=== PATIENT | female | born 1985 | race African-American/Black ===

== ENCOUNTER 2017-05-19 19:45 | Emergency (ER) | payer SELFPAY ==
[2017-05-19] MEDS ORDERED: IV NORMAL SALINE 1000ML BAG 1,000 ML IV SCH (20:17)
[2017-05-19] MEDS ORDERED: FAMOTIDINE 20 MG/2 ML VIAL IVP ONE (20:30)
[2017-05-19] MEDS ORDERED: 0.9 % SODIUM CHLORIDE 10 ML DISP.SYRIN. IV PRN (20:30)
[2017-05-19] MEDS ORDERED: ONDANSETRON PF 4 MG/2 ML VIAL. IV ONE (20:30)
[2017-05-19] MEDS ORDERED: KETOROLAC 30 MG/ML INJ. IV ONE (20:30)
[2017-05-19 20:35] LABS: BASO % 1 % (0-3); EOS % 2 % (0-3); HEMATOCRIT 39.2 % (36.0-47.0); HEMOGLOBIN 12.9 g/dL (12.0-15.5); LYMPH # 3.6 x10^3/uL (1.0-4.8); LYMPH % 53 % (24-48); MEAN CORPUSCULAR HEMOGLOBIN 29 pg (25-35); MEAN CORPUSCULAR HGB CONC 33 g/dL (31-37); MEAN CORPUSCULAR VOLUME 88 fL (79-100); MONO % 4 % (0-9); NEUT % 40 % (31-73); PLATELET COUNT 307 x10^3/uL (140-400); RED BLOOD COUNT 4.47 x10^6/uL (3.50-5.40); RED CELL DISTRIBUTION WIDTH 13.2 % (11.5-14.5); WHITE BLOOD COUNT 6.8 x10^3/uL (4.0-11.0)
[2017-05-19 20:36] LABS: BILIRUBIN,URINE NEGATIVE (NEG); GLUCOSE,URINE NEGATIVE (NEG); NITRITE,URINE NEGATIVE (NEG); PH,URINE 7.5; PROTEIN,URINE NEGATIVE (NEG-TRACE)
[2017-05-19 20:43] LABS: BACTERIA,URINE 0 /HPF (0-FEW); RBC,URINE 20-40 /HPF (0-2); SQUAMOUS EPITHELIAL CELL,UR FEW /LPF; WBC,URINE OCC /HPF (0-4)
[2017-05-19 20:50] LABS: CALCIUM 8.8 mg/dL (8.5-10.1); CREATININE 0.8 mg/dL (0.6-1.0); GFR 101.9; POTASSIUM 3.8 mmol/L (3.5-5.1)
[2017-05-19 20:56] LABS: ALBUMIN 3.6 g/dL (3.4-5.0); TOTAL BILIRUBIN 0.7 mg/dL (0.2-1.0); TOTAL PROTEIN 7.3 g/dL (6.4-8.2)
[2017-05-19 21:07] VITALS: BP 129/84
--- NOTE | 2017-05-19 21:08 | RAD ---
CT abdomen and pelvis without contrast HISTORY: Epigastric abdominal pain. TECHNIQUE: Helical noncontrast CT imaging of the abdomen and pelvis was acquired. Abdomen findings: There are probable gallstones present. No nephroureterolithiasis or hydronephrosis. Kidneys, adrenals, pancreas, spleen and liver are unremarkable. Moderate volume of stool within the colon. No obstruction or inflammatory changes in GI tract. Portion of the appendix is visualized. The cecum and is negative for inflammatory change. No abdominal fluid. Lung bases and bones are unremarkable. Pelvis findings: Uterus appears to be mildly enlarged, intrauterine device is positioned obliquely at the uterus, malpositioning or myometrial perforation by the device cannot be excluded particularly the left arm of the device which appears to approach adjacent bowel loops overlying the uterus. No bladder calculi. Ovaries obscured by surrounding bowel loops. No pelvic fluid. Mild volume of stool within the rectosigmoid colon. Bones unremarkable. IMPRESSION: 1. No acute process. Appendix is negative. 2. Probable gallstones. 3. Mild uterine enlargement. There may be malpositioning of the intrauterine device, myometrial perforation of one of the arms of the device cannot be excluded. This could be further characterized by pelvic sonography. Exposure: One or more of the following individualized dose reduction techniques were utilized for this examination: 1. Automated exposure control 2. Adjustment of the mA and/or kV according to patient size 3. Use of iterative reconstruction technique Electronically signed by: William Wills MD (05/19/2017 9:05 PM) [facility]
--- NOTE | 2017-05-19 21:12 | PHYS DOC ---
Past Medical History Past Medical History: Bronchitis Past Surgical History: No Surgical History Alcohol Use: None Drug Use: Marijuana Adult General Chief Complaint Chief Complaint: ABDOMINAL PAIN HPI HPI sHe is a pleasant 32-year-old -[place] female who is a G [id number] who presents with intermittent crampy abdominal pain epigastric began about 9:00 this morning. Patient admits she is a homeless individual who was just recently released [place] a [place] [facility] who complains of intermittent crampy abdominal pain in the epigastrium that radiates under each breast bilaterally. It is not worse with food impaction are prior to arrival she did eat some butter cookies without issue. She denies any nausea, vomiting, chest pain with this abdominal pain. She has no diarrhea, no fevers no chills or URI symptoms. She denies any drug use or prior history of reflux symptoms. Pain is moderate at this time but 3 of 10. She denies being sexually active, denies any history of sexual transmitted diseases, or being at this time. sHe further denies any UTI symptoms Review of Systems Review of Systems Constitutional: Denies fever or chills [] Eyes: Denies change in visual acuity, redness, or eye pain [] HENT: Denies nasal congestion or sore throat [] Respiratory: Denies cough or shortness of breath [] Cardiovascular: No additional information not addressed in HPI [] GI: Planes of only abdominal pain in the epigastric region with no nausea no vomiting no diarrhea no bloody stools no constipation. : Denies dysuria or hematuria [] Musculoskeletal: Denies back pain or joint pain [] Integument: Denies rash or skin lesions [] Neurologic: Denies headache, focal weakness or sensory changes [] Endocrine: Denies polyuria or polydipsia [] All other systems were reviewed and found to be within normal limits, except as documented in this note. Current Medications Current Medications Current Medications Medications (Trade) Dose Ordered Sig/Ryley Start Time Stop Time Status Last Admin Dose Admin Famotidine (Pepcid Vial) 20 mg 1X ONCE 05/19/17 20:30 05/19/17 20:31 DC 05/19/17 20:32 20 MG Ketorolac Tromethamine (Toradol) 30 mg 1X ONCE 05/19/17 20:30 05/19/17 20:31 DC 05/19/17 20:34 30 MG Ondansetron HCl (Zofran) 4 mg 1X ONCE 05/19/17 20:30 05/19/17 20:31 DC 05/19/17 20:19 4 MG Sodium Chloride (Normal Saline Flush) 10 ml QSHIFT PRN 05/19/17 20:30 Allergies Allergies Allergies Coded Allergies Type Severity Reaction Last Updated Verified No Known Drug Allergies 09/13/13 No Physical Exam Physical Exam Vital signs recorded on the chart patient to be hypertensive only. Constitutional: Well developed, well nourished, no acute distress, non-toxic appearance. [] HENT: Normocephalic, atraumatic, bilateral external ears normal, oropharynx dry mucous membranes with poor dentition no oral exudates, nose normal. [] Eyes: PERRLA, EOMI, conjunctiva normal, no discharge. [] Neck: Normal range of motion, no tenderness, supple, no stridor. [] Cardiovascular:Heart rate regular rhythm, no murmur [] Lungs & Thorax: Bilateral breath sounds clear to auscultation [] Abdomen: Bowel sounds normal, soft,mild tenderness in the epigastric region tenderness, no masses, no pulsatile masses. Guarding rebound or organomegaly. Specific Cronin's or McBurney's point tenderness to palpation. [] Skin: Warm, dry, no erythema, no rash. [] Back: No tenderness, no CVA tenderness. [] Extremities: No tenderness, no cyanosis, no clubbing, ROM intact, no edema. [] Neurologic: Alert and oriented X 3, normal motor function, normal sensory function, no focal deficits noted. [] Psychologic: Affect normal, judgement normal, mood normal. sHe seems cognitively somewhat slow but able answer all questions appropriately [] Current Patient Data Vital Signs Vital Signs Date Time Temp Pulse Resp B/P (MAP) Pulse Ox O2 Delivery O2 Flow Rate FiO2 05/19/17 20:10 97.7 74 16 157/88 (111) 100 Room Air 97.7 Lab Values Laboratory Tests Test 05/19/17 20:25 05/19/17 20:29 White Blood Count 6.8 x10^3/uL (4.0-11.0) Red Blood Count 4.47 x10^6/uL (3.50-5.40) Hemoglobin 12.9 g/dL (12.0-15.5) Hematocrit 39.2 % (36.0-47.0) Mean Corpuscular Volume 88 fL (79-100) Mean Corpuscular Hemoglobin 29 pg (25-35) Mean Corpuscular Hemoglobin Concent 33 g/dL (31-37) Red Cell Distribution Width 13.2 % (11.5-14.5) Platelet Count 307 x10^3/uL (140-400) Neutrophils (%) (Auto) 40 % (31-73) Lymphocytes (%) (Auto) 53 % (24-48) H Monocytes (%) (Auto) 4 % (0-9) Eosinophils (%) (Auto) 2 % (0-3) Basophils (%) (Auto) 1 % (0-3) Neutrophils # (Auto) 2.7 x10^3uL (1.8-7.7) Lymphocytes # (Auto) 3.6 x10^3/uL (1.0-4.8) Monocytes # (Auto) 0.3 x10^3/uL (0.0-1.1) Eosinophils # (Auto) 0.2 x10^3/uL (0.0-0.7) Basophils # (Auto) 0.0 x10^3/uL (0.0-0.2) Urine Collection Type Unknown Urine Color Dk yellow Urine Clarity Clear Urine pH 7.5 Urine Specific [place] >=1.030 Urine Protein Negative mg/dL (NEG-TRACE) Urine Glucose (UA) Negative mg/dL (NEG) Urine Ketones (Stick) Negative mg/dL (NEG) Urine Blood Moderate (NEG) Urine Nitrite Negative (NEG) Urine Bilirubin Negative (NEG) Urine Urobilinogen Dipstick 2.0 mg/dL (0.2 mg/dL) Urine Leukocyte Esterase Negative (NEG) Urine RBC 20-40 /HPF (0-2) Urine WBC Occ /HPF (0-4) Urine Squamous Epithelial Cells Few /LPF Urine Bacteria 0 /HPF (0-FEW) Urine Mucus Marked /LPF Sodium Level 137 mmol/L (136-145) Potassium Level 3.8 mmol/L (3.5-5.1) Chloride Level 105 mmol/L (98-107) Carbon Dioxide Level 26 mmol/L (21-32) Anion Gap 6 (6-14) Blood Urea Nitrogen 11 mg/dL (7-20) Creatinine 0.8 mg/dL (0.6-1.0) Estimated GFR (Cockcroft-Gault) 101.9 BUN/Creatinine Ratio 14 (6-20) Glucose Level 94 mg/dL (70-99) Calcium Level 8.8 mg/dL (8.5-10.1) Total Bilirubin 0.7 mg/dL (0.2-1.0) Aspartate Amino Transferase (AST) 22 U/L (15-37) Alanine Aminotransferase (ALT) 35 U/L (14-59) Alkaline Phosphatase 61 U/L (46-116) Troponin I Quantitative < 0.017 ng/mL (0.000-0.055) Total Protein 7.3 g/dL (6.4-8.2) Albumin 3.6 g/dL (3.4-5.0) Albumin/Globulin Ratio 1.0 (1.0-1.7) Lipase 104 U/L (73-393) POC Urine HCG, Qualitative Hcg negative (Negative) Laboratory Tests 05/19/17 20:25 Laboratory Tests 05/19/17 20:25 EKG EKG [] Radiology/Procedures Radiology/Procedures [] [facility] [address] [place] [address] IMAGING REPORT Signed PATIENT: GUERLINE COWART ACCOUNT: [id number] : 1985 LOCATION: ER AGE: 32 SEX: F EXAM STATUS: REG ER ORD. PHYSICIAN: SANGEETHA MCNEIL MD REASON: epigastric abdominal pain PROCEDURE: CT ABDOMEN PELVIS WO CONTRAST CT abdomen and pelvis without contrast HISTORY: Epigastric abdominal pain. TECHNIQUE: Helical noncontrast CT imaging of the abdomen and pelvis was acquired. Abdomen findings: There are probable gallstones present. No nephroureterolithiasis or hydronephrosis. Kidneys, adrenals, pancreas, spleen and liver are unremarkable. Moderate volume of stool within the colon. No obstruction or inflammatory changes in GI tract. Portion of the appendix is visualized. The cecum and is negative for inflammatory change. No abdominal fluid. Lung bases and bones are unremarkable. Pelvis findings: Uterus appears to be mildly enlarged, intrauterine device is positioned obliquely at the uterus, malpositioning or myometrial perforation by the device cannot be excluded particularly the left arm of the device which appears to approach adjacent bowel loops overlying the uterus. No bladder calculi. Ovaries obscured by surrounding bowel loops. No pelvic fluid. Mild volume of stool within the rectosigmoid colon. Bones unremarkable. IMPRESSION: 1. No acute process. Appendix is negative. 2. Probable gallstones. 3. Mild uterine enlargement. There may be malpositioning of the intrauterine device, myometrial perforation of one of the arms of the device cannot be excluded. This could be further characterized by pelvic sonography. Exposure: One or more of the following individualized dose reduction techniques were utilized for this examination: 1. Automated exposure control 2. Adjustment of the mA and/or kV according to patient size 3. Use of iterative reconstruction technique Electronically signed by: Berny Wills MD (05/19/2017 9:05 PM) [facility] DICTATED and SIGNED BY: BERNY WILLS MD DATE: 05/19/172057 CC: SANGEETHA MCNEIL MD; NON,STAFF ~ Course & Med Decision Making Course & Med Decision Making Pertinent Labs and Imaging studies reviewed. (See chart for details) My abdominal pain differential includes but not limited to ectopic , UTI, pyonephritis, cholecystitis, cholelithiasis, pancreatitis, appendicitis, small bowel obstruction, large bowel obstruction, diverticulosis, Diverticulum, intussusception, volvulus, irritable bowel disease, Crohn's or ulcerative colitis, considered upon arrival Patient is a soft abdomen on exam patient is resting quietly and comfortably describing epigastric abdominal pain and pelvic pain. Patient's abdomen does not demonstrate any signs of peritonitis on physical exam. Her CMP CBC and urinalysis unremarkable signs of inflammation and infection. Patient is not . Time is now 9 PM [] Patient had an unremarkable ER valuation patient was given social work number and also the home as outlined help her find a place to stay. Dragon Disclaimer Dragon Disclaimer This electronic medical record was generated, in whole or in part, using a voice recognition dictation system. Departure Departure Impression: Primary Impression: Abdominal pain Disposition: HOME, SELF-CARE Condition: STABLE Referrals: NON,STAFF (PCP) Patient Instructions: Abdominal Pain, Gastroesophageal Reflux Disease, Adult Additional Instructions: My discharge plan Follow up: In addition patient is asked to followup with their primary doctor, within a week for followup examination and to address patient's ongoing medical conditions. Because patient does not have a regular medical doctor, a local physician Resource Sheet will be provided to establish care primary care. Patient is advised that in the Emergency Department primary complaints are addressed and only in light of known signs and symptoms. Patient should return immediately to the emergency department if new signs and symptoms develop or patient's condition worsens in any way. At time of discharge patient was in stable condition and had verbalized understanding of the discharge instructions. Scripts Ondansetron (ZOFRAN ODT) 4 Mg Tab.rapdis 4 MG PO BID Y for NAUSEA/VOMITING for 5 Days, #10 TAB Prov: SANGEETHA MCNEIL MD 05/19/17 Ranitidine Hcl (ZANTAC) 150 Mg Tablet 1 TAB PO BID, #20 TAB 0 Refills Prov: SANGEETHA MCNEIL MD 05/19/17 SANGEETHA MCNELI MD May 19, 2017 21:12
[2017-05-19] MEDS ORDERED: RANI150T6 PO (21:39)
[2017-05-19] MEDS ORDERED: ONDA4TAB10 PO (21:39)
--- NOTE | 2017-05-20 06:28 | EKG ---
[facility] [address] [place] [address] Test Date: 2017-05-19 Test Time: 20:32:40 Pat Name: GUERLINE COWART Department: Room: Gender: F [employer]: : [id number] Requested By: SANGEETHA MCNEIL Order Number: [id number] Reading MD: Rajinder Noyola MD Measurements Intervals [place] Rate: 60 P: 42 NE: 180 QRS: 66 QRSD: 80 T: 22 QT: 394 QTc: 394 Interpretive Statements SINUS RHYTHM Electronically Signed On 05-21-2017 16:37:38 [employer] FACING SAND by Rajinder Noyola MD
== END 2017-05-19 21:48 | disposition home or self-care (01) ==
LOC: ER 19:45
DX: R10.13 Epigastric pain (principal)
CPT/HCPCS: 36415; 74176; 80053; 81001; 81025; 83690; 84484; 85025; 93005; 96361; 96374; 96375; 99284; J1885; J2405; J7030; S0028